=== PATIENT | female | born 1990 | race Caucasian/White ===

== ENCOUNTER 2019-08-02 12:37 | Outpatient (CLI) | payer OTHER ==
--- NOTE | 2019-08-02 13:16 | RAD ---
Chest 2 views: 08/02/2019 COMPARISON: None HISTORY: Chest pain FINDINGS: Lungs are clear. Heart and mediastinal contours are within normal limits. No acute osseous abnormality. IMPRESSION: No acute findings.
--- NOTE | 2019-08-02 13:17 | RAD ---
EXAM: 2 views of the lumbosacral spine HISTORY: Low back pain COMPARISON: None FINDINGS: 2 views of the lumbosacral spine shows normal height and alignment of the vertebral bodies and intervertebral discs without fracture or subluxation. No significant degenerative changes are seen. There is very minimal scoliotic curvature of the spine. The sacroiliac joints are unremarkable. IMPRESSION: No significant lumbar spine abnormality.
== END 2019-08-02 12:38 | disposition home or self-care (01) ==
LOC: BICRAD 12:37
PROVIDERS: ATTEND Internal Medicine Rheumatology
DX: R07.1 Chest pain on breathing (principal); M45.0 Ankylosing spondylitis of multiple sites in spine
CPT/HCPCS: 71046; 72100

== ENCOUNTER 2022-06-25 09:19 | Outpatient (CLI) | payer OTHER | END 2022-06-25 09:20 | disposition home or self-care (01) | LOC: BICRAD 09:19 | PROVIDERS: ATTEND Family Medicine | DX: R05.9 Cough, unspecified (principal) | CPT/HCPCS: 71046 ==